=== PATIENT | male | born 1980 | race Caucasian/White ===

== ENCOUNTER 2016-09-08 09:23 | Emergency (ER) | payer BC ==
--- NOTE | 2016-09-08 09:31 | EDM.PDOC ---
ED HPI GENERAL MEDICAL PROBLEM - General Chief Complaint: General Stated Complaint: LEG NUMBESS IN BOTH LEGS Time Seen by Provider: 09/08/16 09:45 Source of Information: Reports: Patient History Limitations: Reports: No Limitations - History of Present Illness INITIAL COMMENTS - FREE TEXT/NARRATIVE: History of present illness: [] Patient had a 30 foot fall several years ago with an unknown back injury. Has been fine until approximately 2 months ago when he started having increasing low back pain with numbness in his buttock and pelvic area. He has not had any incontinence or numbness or tingling of his legs. Patient is ambulatory without difficulty. She was in [place] and recently drove from [place] with worsening of his pain. He was seen by primary care doctor back home and put on Neurontin without relief he states actually worsened, however he took the med for less than a week and stopped 4 days ago. Patient is here requesting an MRI. Review of systems: As per history of present illness and below otherwise all systems reviewed and negative. Past medical history: As per history of present illness and as reviewed below otherwise noncontributory. Surgical history: As per history of present illness and as reviewed below otherwise noncontributory. Social history: No reported history of drug or alcohol abuse. Family history: As per history of present illness and as reviewed below otherwise noncontributory. Physical exam: BP 127/83, P 76, RR 16, T97.7 General: Well developed, well nourished in NAD HEENT: Atraumatic, normocephalic, pupils reactive, negative for conjunctival pallor or scleral icterus, mucous membranes moist, throat clear, neck supple, nontender, trachea midline. Lungs: Clear to auscultation, breath sounds equal bilaterally, chest nontender. Heart: S1S2, regular, negative for clicks, rubs, or JVD. Abdomen: Soft, nondistended, nontender. Negative for masses or hepatosplenomegaly. Negative for costovertebral tenderness. Pelvis: Stable nontender. Genitourinary: Deferred. Rectal: Normal sphincter tone and sensation intact Extremities: Atraumatic, negative for cords or calf pain. Neurovascular unremarkable. Neuro: Awake, alert, oriented. Cranial nerves II through XII unremarkable. Cerebellum unremarkable. Motor and sensory unremarkable throughout. Exam nonfocal. Straight leg raise is negative, patellar and Achilles reflexes equal bilaterally, lifts great toes equally. Diagnostics: [] Therapeutics: [] Impression: [] Sciatica bilateral Plan: [] Ice to her back, high dose fish oil, OTC anti-inflammatories needed, followup with primary care when you return to [place]. Definitive disposition and diagnosis as appropriate pending reevaluation and review of above. Bilateral Leg Pain Score (Numeric/FACES): 6 - Related Data Allergies Allergy/AdvReac Type Severity Reaction Status Date / Time No Known Allergies Allergy Verified 09/08/16 09:32 Home Meds: Home Meds . [No Known Home Meds] 09/08/16 [History] ED ROS GENERAL - Review of Systems Review Of Systems: See Below (See history of present illness) ED EXAM, GENERAL - Physical Exam Exam: See Below (See history of present illness) Course - Vital Signs Last Recorded V/S: Last Vital Signs Temp 36.5 C 09/08/16 09:32 Pulse 76 09/08/16 09:32 Resp 16 09/08/16 09:32 BP 127/83 09/08/16 09:32 Pulse Ox 99 09/08/16 09:32 Departure - Departure Time of Disposition: 09:59 Disposition: Home, Self-Care 01 Condition: good Clinical Impression: Sciatica Qualifiers: Laterality: bilateral Qualified Code(s): M54.31 - Sciatica, right side; M54.32 - Sciatica, left side - Discharge Information Forms: ED Department Discharge Additional Instructions: The following information is given to patients seen in the emergency department who are being discharged to home. This information is to outline your options for follow-up care. We provide all patients seen in our emergency department with a follow-up referral. The need for follow-up, as well as the timing and circumstances, are variable depending upon the specifics of your emergency department visit. If you don't have a primary care physician on staff, we will provide you with a referral. We always advise you to contact your personal physician following an emergency department visit to inform them of the circumstance of the visit and for follow-up with them and/or the need for any referrals to a consulting specialist. The emergency department will also refer you to a specialist when appropriate. This referral assures that you have the opportunity for follow-up care with a specialist. All of these measure are taken in an effort to provide you with optimal care, which includes your follow-up. Under all circumstances we always encourage you to contact your private physician who remains a resource for coordinating your care. When calling for follow-up care, please make the office aware that this follow-up is from your recent emergency room visit. If for any reason you are refused follow-up, please contact the [facility] Emergency Department at and asked to speak to the emergency department charge nurse. Take a high-dose fish oil (eg. [employer]) [id number] mg a day, ice pack 20 minutes at a time as much as possible, while driving long distances stop frequently and take walks and/or stretch. Followup with her primary care physician for further workup in [place] when able. Return to ER immediately if any incontinence or worsening symptoms occur. If needed while you are here locally you can call for followup with primary care. [facility] [place] [id number]
[2016-09-08 09:36] VITALS: BP 127/83
== END 2016-09-08 10:07 | disposition home or self-care (01) ==
LOC: MW.ED 09:23
DX: M54.32 Sciatica, left side (principal); M54.31 Sciatica, right side
CPT/HCPCS: 99282; 99284